=== PATIENT | female | born 1985 | race Caucasian/White ===

== ENCOUNTER → 2018-03-16 | Outpatient (CLI) | payer OTHER | LOC: FIMAGING 07:46 | PROVIDERS: ATTEND Radiology Diagnostic Radiology | DX: I83.92 Asymptomatic varicose veins of left lower extremity (principal); N94.89 Other specified conditions associated with female genital organs and menstrual cycle; I86.3 Vulval varices ==

== ENCOUNTER → 2018-03-31 | Outpatient (CLI) | payer OTHER ==
[~2018-03-31] MED LIST: IOPAMIDOL (ISOVUE-300) 100 ML BTL ONE
== END ==
LOC: FIMAGING 10:16
PROVIDERS: ATTEND Radiology Diagnostic Radiology
DX: R10.2 Pelvic and perineal pain (principal); K76.89 Other specified diseases of liver
CPT/HCPCS: Q9967